=== PATIENT | female | born 1990 | race African-American/Black ===

== ENCOUNTER 2017-11-25 08:28 | Emergency (ER) ==
--- NOTE | 2017-11-25 09:37 | ER Document Report ---
ED Medical Screen (RME) - General Chief Complaint: Vaginal Pain Stated Complaint: POSSIBLE ALLERGIC REACTION Mode of Arrival: Ambulatory Information source: Patient Notes: I had clicked into the patient's chart and ordered urinalysis and pelvic set up. Before this can be done patient left saying she had a job interview and had to leave. I have greeted and performed a rapid initial assessment of this patient. A comprehensive ED assessment and evaluation of the patient, analysis of test results and completion of the medical decision making process will be conducted by additional ED providers. TRAVEL OUTSIDE OF THE [place] IN LAST 30 DAYS: No - Related Data Allergies/Adverse Reactions: No Known Drug Allergies Allergy (Verified 11/25/17 09:13) Past Medical History - General Last Menstrual Period: 11/04/17 - Social History Chew tobacco use (# tins/day): No Frequency of alcohol use: None Drug Abuse: None Renal/ Medical History: Denies: Hx Peritoneal Dialysis Past Surgical History: Reports: Hx Section Physical Exam - Vital signs Vitals: Temp Pulse Resp BP Pulse Ox 98.7 F 87 12 115/66 100 11/25/17 08:41 11/25/17 08:41 11/25/17 08:41 11/25/17 08:41 11/25/17 08:41 Course - Vital Signs Vital signs: Temp Pulse Resp BP Pulse Ox 98.7 F 87 12 115/66 100 11/25/17 08:41 11/25/17 08:41 11/25/17 08:41 11/25/17 08:41 11/25/17 08:41 Doctor's Discharge - Discharge Clinical Impression: Vaginal irritation Disposition: LEFT WITHOUT BEING SEEN
== END 2017-11-25 09:27 | disposition left against medical advice (07) ==
LOC: ER 08:28
DX: Z53.21 Procedure and treatment not carried out due to patient leaving prior to being seen by health care provider (principal); R10.2 Pelvic and perineal pain

== ENCOUNTER → 2019-01-26 | Outpatient (CLI) | payer SELFPAY ==
--- NOTE | 2019-01-26 16:48 | RADIOLOGY REPORT (SQ) ---
EXAM DESCRIPTION: U/S [id number] TRNABD 1GES W/ODOP COMPLETED DATE/TIME: 01/26/2019 4:05 pm REASON FOR STUDY: Z34.81 ENCOUNTER FOR SUPRVSN OF NORMAL , FIRST TRIMESTER Z34.81 ENCOUNTE R FOR SUPRVSN OF NORMAL , FIRST TRIM COMPARISON: None. TECHNIQUE: Transabdominal static and realtime grayscale images acquired of the pelvis. Additional se lected spectral and color Doppler images recorded. All images stored on PACs. bHCG: Not available. CLINICAL DATES: Gestational age 7 weeks 5 days. LIMITATIONS: None. FINDINGS: FETUS: Single Living intrauterine . ULTRASOUND EGA: 7 weeks 0 days. ULTRASOUND MARLINE: 09/14/2019 EFW: Not applicable less than 20 weeks. CRL: 9.3 mm. FHR: 160 beats per minute. SURVEY: Too early to assess. AMNIOTIC FLUID: Adequate amount. PLACENTA: Not yet developed due to early gestation. SUBCHORIONIC BLEED: No SIZE OF BLEED: Not applicable. UTERUS: No masses. No anomalies. CERVICAL LENGTH: 2.4 cm. Closed. RIGHT ADNEXA: Ovary not seen. No adnexal free fluid. No adnexal masses. LEFT ADNEXA: Ovary not seen. No adnexal free fluid. No adnexal masses. FREE FLUID: None. OTHER: No other significant finding. IMPRESSION: LIVING INTRAUTERINE . EGA 7 weeks 0 days. Trimester of : First trimester - 0 to 13 weeks. TECHNICAL DOCUMENTATION: JOB ID: [id number] [employer]- All Rights Reserved rev Reading location - IP/workstation name: [email or web address]
== END ==
LOC: RAD 14:49
PROVIDERS: ATTEND Midwife
DX: Z34.81 Encounter for supervision of other normal pregnancy, first trimester (principal)
CPT/HCPCS: 76801

== ENCOUNTER 2019-02-07 19:14 | Emergency (ER) | payer MEDICAID ==
[2019-02-07] MEDS ORDERED: ONDANSETRON 4 MG TAB.RAPDIS PO ONE (19:24)
--- NOTE | 2019-02-07 19:24 | ER Document Report ---
ED Medical Screen (RME) - General Chief Complaint: Vomiting Stated Complaint: BODY ACHES VOMITING Time Seen by Provider: 02/07/19 19:20 Primary Care Provider: WALE GIL CNM [Primary Care Provider] - Follow up as needed Mode of Arrival: Wheelchair Information source: Parent Notes: 29-year-old female presents to ED for complaint of nausea and vomiting since yesterday. She is 9 weeks . Last menstrual period was November 28. Patient states she has body aches all over and is nausea and vomiting frequently. Patient states she does not smoke drink or use any drugs. Patient is 6 para 4 TRAVEL OUTSIDE OF THE [place] IN LAST 30 DAYS: No - Related Data Allergies/Adverse Reactions: No Known Drug Allergies Allergy (Verified 11/25/17 09:13) Past Medical History Renal/ Medical History: Denies: Hx Peritoneal Dialysis Past Surgical History: Reports: Hx Section Doctor's Discharge - Discharge Referrals: WALE GIL CNM [Primary Care Provider] - Follow up as needed
[2019-02-07] MEDS ORDERED: NORMAL SALINE 1000 ML 1,000 ML IV PRN (19:54)
[2019-02-07 20:07] LABS: ABSOLUTE LYMPHOCYTES (AUTO) 1.1 10^3/uL (0.5-4.7); ABSOLUTE MONOCYTES (AUTO) 0.5 10^3/uL (0.1-1.4); ABSOLUTE NEUT (AUTO) 14.9 10^3/uL (1.7-8.2); BASOPHILS % (AUTO) 0.3 % (0-2); HEMOGLOBIN 14.9 g/dL (12.0-15.5); LYMPHOCYTES % (AUTO) 6.5 % (13-45); MEAN CORPUSCULAR HEMOGLOBIN 28.7 pg (27.0-33.4); MEAN CORPUSCULAR HGB CONC 33.1 g/dL (32.0-36.0); MEAN CORPUSCULAR VOLUME 87 fl (80-97); MONOCYTES % (AUTO) 3.2 % (3-13); PLATELET COUNT 240 10^3/uL (150-450); RED BLOOD COUNT 5.19 10^6/uL (3.72-5.28); TOTAL CELLS COUNTED % (AUTO) 100 %; WHITE BLOOD COUNT 16.5 10^3/uL (4.0-10.5)
[2019-02-07] MEDS ORDERED: NORMAL SALINE 1000 ML 1,000 ML IV ONE (20:28)
[2019-02-07] MEDS ORDERED: ACETAMINOPHEN 325 MG TABLET PO ONE (20:28)
--- NOTE | 2019-02-07 20:32 | ER Document Report ---
ED General - General Chief Complaint: Nausea/Vomiting Stated Complaint: BODY ACHES VOMITING Time Seen by Provider: 02/07/19 19:20 Primary Care Provider: WALE GIL CNM [NO LOCAL MD] - Follow up as needed Mode of Arrival: Wheelchair TRAVEL OUTSIDE OF THE [place] IN LAST 30 DAYS: No - HPI Notes: Patient is a very pleasant 29-year-old female, G6, P4, who presents emergency department for evaluation of nausea and vomiting. She did have a significant amount of nausea and vomiting with this . She states that she was given a medication from her OB, but was only given 7 pills. She has some for relief from that, and then actually had a reprieve from her vomiting. She states she started vomiting again yesterday at 6:00 in the morning. She states she is vomited every half an hour. Emesis has been nonbloody, nonbilious. She states she just has body aches everywhere. She was unsure as to whether or not she is been having fevers, she states that they have never registered 1, but she has been feeling hot and cold. She has a cough, but states she has a history of sarcoidosis, really cannot tell that this cough is any different from her baseline. Normal bowel movements. Normal urination. No vaginal bleeding or abdominal pain. She states she just has aching all over. - Related Data Allergies/Adverse Reactions: No Known Drug Allergies Allergy (Verified 11/25/17 09:13) Past Medical History - General Information source: Patient - Social History Smoking Status: Former Smoker Frequency of alcohol use: None Family History: Other - Patient is adopted, cannot give details on family medical history, but states that extensive Patient has suicidal ideation: No Patient has homicidal ideation: No - Medical History Medical History: Other - Sarcoidosis Renal/ Medical History: Denies: Hx Peritoneal Dialysis Past Surgical History: Reports: Hx Section Review of Systems - Review of Systems Constitutional: See HPI EENT: No symptoms reported Cardiovascular: No symptoms reported Respiratory: No symptoms reported Gastrointestinal: See HPI Genitourinary: No symptoms reported Female Genitourinary: No symptoms reported Musculoskeletal: No symptoms reported Skin: No symptoms reported Neurological/Psychological: No symptoms reported Physical Exam - Vital signs Vitals: Temp Pulse Resp BP Pulse Ox 97.8 F 103 H 18 121/82 100 02/07/19 19:20 02/07/19 19:20 02/07/19 19:20 02/07/19 19:20 02/07/19 19:20 - Notes Notes: Is a very pleasant 29-year-old female, appears her stated age, no acute distress. Vital signs reviewed, please refer to chart. Head is normocephalic, atraumatic. Pupils equal round, reactive to light. Oral mucosa is slightly dry. Pharynx is without erythema or exudate. 3435 and 30 neck is supple without meningismus. Heart is regular rate and rhythm. Lungs are clear to auscultation bilaterally. Abdomen is soft, nontender, normoactive bowel sounds throughout. Extremities without cyanosis, clubbing. Posterior calves are nontender. Peripheral pulses are equal. Skin is warm and dry. Patient is awake, alert, neurological exam is nonfocal. Course - Re-evaluation Re-evalutation: 02/07/19 20:31 Patient presents the emergency department for evaluation. She states she is had some chills that this is nausea, but she has no diarrhea. No urinary symptoms. Laboratory investigations are ordered and pending at this time. Patient will be given 2 L of normal saline. After Zofran ODT she is no longer feeling nauseated. I will give her Tylenol for her body aches. We will continue to monitor. 02/07/19 23:53 Patient received 2 L of normal saline. Her urine was contaminated, but sent in for culture. No overt signs of infection were noted. I will send her home with some Zofran and close OB follow-up. She is to return to the ED with worsening. - Vital Signs Vital signs: Temp Pulse Resp BP Pulse Ox 97.8 F 103 H 18 121/82 100 02/07/19 19:20 02/07/19 19:20 02/07/19 19:20 02/07/19 19:20 02/07/19 19:20 - Laboratory Result Diagrams: 02/07/19 19:48 02/07/19 19:48 Laboratory results interpreted by me: 02/07/19 02/07/19 02/07/19 19:48 19:48 22:12 WBC 16.5 H Lymph % (Auto) 6.5 L Absolute Neuts (auto) 14.9 H Seg Neutrophils % 90.0 H Carbon Dioxide 20 L Calcium 10.4 H Total Protein 8.3 H Beta HCG, Quant 384373.00 H Urine Protein 30 H Urine Ketones 80 H Urine Urobilinogen 2.0 H Leukocyte Esterase Rfl TRACE H Urine Ascorbic Acid 20 H Discharge - Discharge Clinical Impression: Nausea and vomiting during prior to 22 weeks gestation Condition: Stable Disposition: HOME, SELF-CARE Instructions: Vomiting ([facility]), Antinausea Medication ([facility]) Additional Instructions: Stay hydrated with small, frequent sips of fluids. Follow-up with your OB this week. If you develop increased vomiting, dizziness, vaginal bleeding, or any other new or concerning symptoms, please return immediately to the emergency department for reevaluation. Referrals: WALE GIL CNM [NO LOCAL MD] - Follow up as needed
[2019-02-07 20:33] LABS: ALKALINE PHOSPHATASE 72 U/L (38-126); ANION GAP 16 (5-19); ASPARTATE AMINO TRANSFERASE 31 U/L (14-36); BILIRUBIN,DIRECT 0.2 mg/dL (0.0-0.4); BILIRUBIN,TOTAL 0.9 mg/dL (0.2-1.3); BLOOD UREA NITROGEN 11 mg/dL (7-20); CALCIUM 10.4 mg/dL (8.4-10.2); CARBON DIOXIDE 20 mmol/L (22-30); CHLORIDE 105 mmol/L (98-107); GLUCOSE 94 mg/dL (75-110); POTASSIUM 3.7 mmol/L (3.6-5.0); TOTAL PROTEIN 8.3 g/dL (6.3-8.2)
[2019-02-07 23:05] LABS: APPEARANCE,URINE SLIGHTLY-CLOUDY; BILIRUBIN,URINE NEGATIVE (NEGATIVE); COLOR,URINE YELLOW; GLUCOSE, URINE NEGATIVE (NEGATIVE); KETONES,URINE 80 mg/dL (NEGATIVE); PROTEIN,URINE 30 mg/dL (NEGATIVE); URINE SPECIFIC GRAVITY 1.025
[2019-02-07] MEDS ORDERED: ONDANSETRON ODT 4 MG TAB (6 TAB/ER DISP) PO PRN (23:54)
[2019-02-08 00:08] VITALS: BP 113/60
== END 2019-02-08 00:11 | disposition home or self-care (01) ==
LOC: ER 19:14
DX: O21.8 Other vomiting complicating pregnancy (principal); M79.10 Myalgia, unspecified site; Z3A.01 Less than 8 weeks gestation of pregnancy
CPT/HCPCS: 36415; 87086; 84702; 85025; 80053; 81001; J3490; S0119; J7030; 87088; 96360; 96361; 99284